=== PATIENT | female | born 2000 | race Caucasian/White ===

== ENCOUNTER 2020-05-09 11:16 | Emergency (ER) | payer OTHER ==
[~2020-05-09] VITALS: Ht 177.8 cm; Wt 68.2 kg
[2020-05-09 11:28] VITALS: TEMP 99.2
[2020-05-09 12:50] VITALS: BP 92/80; PULSE 79
== END 2020-05-09 12:55 | disposition home or self-care (01) ==
LOC: COL.ER 11:16
DX: S61.211A Laceration without foreign body of left index finger without damage to nail, initial encounter (principal); W26.0XXA Contact with knife, initial encounter; Y92.009 Unspecified place in unspecified non-institutional (private) residence as the place of occurrence of the external cause

== ENCOUNTER → 2020-05-16 | Outpatient (CLI) | payer OTHER ==
[2020-05-16 12:45] VITALS: BP 106/69; PULSE 79; TEMP 98.2
== END ==
LOC: COL.ER 12:31
DX: Z48.02 Encounter for removal of sutures (principal)

== ENCOUNTER → 2020-05-19 | Outpatient (CLI) | payer OTHER | LOC: ZCOL.LAB 17:10 | DX: Z20.828 Contact with and (suspected) exposure to other viral communicable diseases (principal) ==